=== PATIENT | male | born 1995 | race American Indian/Alaskan Native ===

== ENCOUNTER → 2017-05-20 | Outpatient (CLI) | payer OTHER | LOC: COL.RAD 10:15 | DX: I86.1 Scrotal varices (principal) ==

== ENCOUNTER 2018-07-10 10:50 | Emergency (ER) | payer OTHER ==
[~2018-07-10] VITALS: Ht 162.6 cm; Wt 62.0 kg
[2018-07-10 11:02] VITALS: BP 130/86; TEMP 98.8
[2018-07-10] MEDS ORDERED: ANTIBIOTIC (11:05)
[2018-07-10 11:33] VITALS: PULSE 77
== END 2018-07-10 11:34 | disposition home or self-care (01) ==
LOC: COL.ER 10:50
DX: T22.212A Burn of second degree of left forearm, initial encounter (principal); X19.XXXA Contact with other heat and hot substances, initial encounter